=== PATIENT | female | born 2000 | race Two or more races ===

== ENCOUNTER 2022-04-09 10:37 | Emergency (ER) | payer OTHER ==
[~2022-04-09] VITALS: Ht 175.3 cm; Wt 122.5 kg
[2022-04-09] MEDS ORDERED: LISINOPRIL20 MG PO (11:10)
== END 2022-04-09 13:29 | disposition home or self-care (01) ==
LOC: ER 10:37
DX: M94.0 Chondrocostal junction syndrome [Tietze] (principal)